=== PATIENT | female | born 1995 | race Two or more races ===

== ENCOUNTER 2017-06-26 02:36 | Emergency (ER) | payer OTHER ==
--- NOTE | 2017-06-26 03:51 | ER Document Report ---
ED General - General Chief Complaint: Vag Bleeding, +preg <12wks Stated Complaint: VAGINAL BLEEDING Time Seen by Provider: 06/26/17 03:42 Notes: Patient is a 21-year-old female who presents with complaint of some pelvic cramping and vaginal bleeding. Symptoms have been ongoing tonight. She did have some cramping yesterday and was seen at [place] emergency department. She said she had an ultrasound there which showed what she thinks was an IUP with a low heart rate. She was also told that she had a fibroid. Her bleeding started tonight and therefore she came to our ER for reevaluation. This is her first . She is unsure what her blood type is. She has been taking vitamins. She takes no other medications and has no chronic medical problems. She has no other complaints or concerns at this time. She has not yet seen the associate dean of students. TRAVEL OUTSIDE OF THE [place] IN LAST 30 DAYS: No - Related Data Allergies/Adverse Reactions: No Known Allergies Allergy (Verified 08/01/15 08:08) Past Medical History - Social History Smoking Status: Never Smoker Frequency of alcohol use: None Drug Abuse: None Family History: None Renal/ Medical History: Denies: Hx Peritoneal Dialysis - Immunizations Immunizations up to date: Yes Hx Diphtheria, Pertussis, Tetanus Vaccination: Yes Review of Systems - Review of Systems Notes: My Normal Review Basic REVIEW OF SYSTEMS: CONSTITUTIONAL : Denies fever, chills, or sweats. Denies recent illness. RESPIRATORY: Denies cough, cold, or chest congestion. Denies shortness of breath, difficulty breathing, or wheezing. GASTROINTESTINAL: Denies abdominal pain. Denies nausea, vomiting, or diarrhea. Denies constipation. Last BM: GENITOURINARY: Denies difficulty urinating, painful urination, burning, frequency, or blood in urine. FEMALE GENITOURINARY: Vaginal bleeding.. LMP: Currently MUSCULOSKELETAL: Denies neck or back pain or joint pain or swelling. SKIN: Denies rash or skin lesions. NEUROLOGICAL: Denies altered mental status or loss of consciousness. Denies headache. Denies weakness or paralysis or loss of use of either side. Denies problems with gait or speech. Denies sensory or motor loss. ALL OTHER SYSTEMS REVIEWED AND NEGATIVE. Physical Exam - Vital signs Vitals: Temp Pulse Resp BP Pulse Ox 98.4 F 63 18 126/66 H 99 09/06/17 02:49 06/26/17 02:49 06/26/17 02:49 06/26/17 02:49 06/26/17 02:49 - Notes Notes: General Appearance: Well nourished, alert, cooperative, no acute distress, no obvious discomfort. Well-appearing. Vitals: reviewed, See vital signs table. Lungs: No wheezing, No rales, No rhonci, No accessory muscle use, good air exchange bilaterally. Heart: Normal rate, Regular rythm, No murmur, no rub Abdomen: Normal BS, soft, No rigidity, No inducible abdominal tenderness palpation, No guarding, no rebound, no abdominal masses, no organomegaly Extremities: strength 5/5 in all extremities, good pulses in all extremities, no swelling or tenderness in the extremities, no edema. Skin: warm, dry, appropriate color, no rash Neuro: speech clear, oriented x 3, normal affect, responds appropriately to questions. Course - Re-evaluation Re-evalutation: 06/26/17 06:17 Patient's ultrasound shows no heart rate. I suspect that she most likely is having a miscarriage. I informed patient that I suspect she will probably a miscarriage however it is on 100% clear at this time. I informed that she should return to the ER in 2 days for repeat hCG level to see if it is trending upwards or downwards. I encouraged her return to ER if she has heavy bleeding causing dizziness or if she feels short of breath or unwell. Patient agrees with plan and will be discharged home. Dictation of this chart was performed using voice recognition software; therefore, there may be some unintended grammatical errors. - Vital Signs Vital signs: Temp Pulse Resp BP Pulse Ox 98.4 F 63 18 126/66 H 99 06/26/17 02:49 06/26/17 02:49 06/26/17 02:49 06/26/17 02:49 06/26/17 02:49 - Laboratory Laboratory results interpreted by me: 06/26/17 04:00 Beta HCG, Quant 3754.20 H Discharge - Discharge Clinical Impression: Vaginal bleeding in Condition: Good Disposition: HOME, SELF-CARE Additional Instructions: Your current ultrasound cannot see a heartbeat. This could be because your is early or could be because you are having a miscarriage. It is important that you return to the ER in 2 days so we can repeat your hormone level. This will help confirm whether or not your is continuing normally or if you are having a miscarriage. Please return to the ER immediately if you have worsening pain, heavy bleeding, dizziness, or feel unwell. Please avoid sexual activity until cleared by an OB doctor.
--- NOTE | 2017-06-26 05:43 | RADIOLOGY REPORT (SQ) ---
EXAM DESCRIPTION: U/S OB TRANSVAG W/DOPPLER COMPLETED DATE/TIME: 06/26/2017 5:20 am REASON FOR STUDY: pain, vag bleeding in COMPARISON: None. TECHNIQUE: Transvaginal static and realtime grayscale images acquired of the pelvis. Additional dhruv cted spectral and color Doppler images recorded. All images stored on PACs. [facility] [place].20 LIMITATIONS: None. FINDINGS: UTERUS: The uterus measures 9.0 x 7.2 x 5.3 cm. There is a hypoechoic mass at the left po sterior myometrium measuring 5.1 x 5.2 x 4.8 cm, appearance suggestive of a uterine fibroid. There is heterogeneous material distending the endometrial cavity to 2.0 cm. The cervix measures 2.2 cm in length. GESTATIONAL SAC: Yes. YOLK SAC: Yes. POLE: Yes, measuring 0.27 cm. No heart rate was identified at this time. RIGHT ADNEXA: The right ovary was not visualized. LEFT ADNEXA: The left ovary was not visualized. FREE FLUID: None. IMPRESSION: Intrauterine gestation with no heart rate identified this time. Short-term follow up ultrasound recommended to re-evaluate. Heterogeneous material distending the endometrial cavity, may represent blood products. Large uterine fibroid. Trimester of : First - 0 to 13 weeks. TECHNICAL DOCUMENTATION: JOB ID: [id number] [employer]- All Rights Reserved
[2017-06-26] MEDS ORDERED: ACETAMINOPHEN 325 MG TABLET PO ONE (05:59)
[2017-06-26 06:56] VITALS: BP 127/62
== END 2017-06-26 06:55 | disposition home or self-care (01) ==
LOC: ER 02:36
DX: O46.91 Antepartum hemorrhage, unspecified, first trimester (principal); R10.2 Pelvic and perineal pain; Z3A.01 Less than 8 weeks gestation of pregnancy
CPT/HCPCS: 36415; 76817; 84702; 86900; 86901; 93976; 99284

== ENCOUNTER 2017-06-28 10:05 | Emergency (ER) | payer OTHER ==
[2017-06-28] MEDS ORDERED: ACETAMINOPHEN 325 MG TABLET PO ONE (10:38)
--- NOTE | 2017-06-28 10:38 | ER Document Report ---
ED GI/ - General Chief Complaint: Vaginal Bleeding Stated Complaint: ABDOMINAL PAIN Time Seen by Provider: 06/28/17 10:25 Mode of Arrival: Ambulatory Information source: Patient TRAVEL OUTSIDE OF THE [place] IN LAST 30 DAYS: No - HPI Patient complains to provider of: Pelvic pain, , Vaginal bleeding Onset: Last week Timing/Duration: Gradual Quality of pain: Achy, Cramping Severity at maximum: Mild Severity in ED: Mild Pain Level: 2 Location: Suprapubic, Pelvis, Vaginal Vaginal bleeding (Compared to normal period): Similar Associated symptoms: None Exacerbated by: Denies Relieved by: Denies Similar symptoms previously: Yes Recently seen / treated by doctor: Yes Notes: 06/28/17 10:37 Patient is a 21-year-old female who is approximately 9 weeks by dates, presenting to the emergency room complaining of vaginal bleeding with pelvic cramping that has been going on for the past week, she was previously seen in this emergency room on 06/26/2017 and diagnosed with likely impending miscarriage , patient states when she returned home after being discharged she did pass a small amount of tissue consistent with likely miscarriage, this is her first , she denies any medical problems, she does not currently have FASHION DIRECTOR, return today for reevaluation of beta quantitative hCG - Related Data Allergies/Adverse Reactions: No Known Allergies Allergy (Verified 06/28/17 10:09) Home Medications: Current Home Medications Pnv with Ca,No.72/Iron/FA [Pnv Plus Multivit Tab] 1 tab PO DAILY [History] Past Medical History - General Information source: Patient - Social History Smoking Status: Former Smoker Chew tobacco use (# tins/day): No Frequency of alcohol use: None Drug Abuse: None Family History: None Renal/ Medical History: Denies: Hx Peritoneal Dialysis Surgical Hx: Negative - Immunizations Immunizations up to date: Yes Hx Diphtheria, Pertussis, Tetanus Vaccination: Yes Review of Systems - Review of Systems Constitutional: No symptoms reported EENT: No symptoms reported Cardiovascular: No symptoms reported Respiratory: No symptoms reported Gastrointestinal: See HPI Genitourinary: No symptoms reported Female Genitourinary: No symptoms reported Musculoskeletal: No symptoms reported Skin: No symptoms reported Hematologic/Lymphatic: No symptoms reported Neurological/Psychological: No symptoms reported -: Yes All other systems reviewed and negative Physical Exam - Vital signs Vitals: Temp Pulse Resp BP Pulse Ox 98.0 F 65 20 129/98 H 98 06/28/17 10:09 06/28/17 10:06/28/17 10:06/28/17 10:06/28/17 10:09 Interpretation: Normal - General General appearance: Appears well, Alert - HEENT Head: Normocephalic, Atraumatic Eyes: Normal Pupils: PERRL - Respiratory Respiratory status: No respiratory distress Chest status: Nontender Breath sounds: Normal Chest palpation: Normal - Cardiovascular Rhythm: Regular Heart sounds: Normal auscultation Murmur: No - Abdominal Inspection: Normal Distension: No distension Bowel sounds: Normal Tenderness: Tender - suprapubic Organomegaly: No organomegaly - Back Back: Normal, Nontender - Extremities General upper extremity: Normal inspection, Nontender, Normal color, Normal ROM , Normal temperature General lower extremity: Normal inspection, Nontender, Normal color, Normal ROM , Normal temperature, Normal weight bearing. No: Chris's sign - Neurological Neuro grossly intact: Yes Cognition: Normal Orientation: AAOx4 [place] Coma Scale Eye Opening: Spontaneous [place] Coma Scale Verbal: Oriented [place] Coma Scale Motor: Obeys Commands [place]iley Coma Scale Total: 15 Speech: Normal Motor strength normal: LUE, RUE, LLE, RLE Sensory: Normal - Psychological Associated symptoms: Normal affect, Normal mood - Skin Skin Temperature: Warm Skin Moisture: Dry Skin Color: Normal Course - Re-evaluation Re-evalutation: 06/28/17 11:49 Findings were discussed with patient at bedside, quantitative beta hCG went from 3700-650 today, indicative of complete miscarriage, patient continues to have mild cramping and bleeding, she was advised to follow-up with FASHION DIRECTOR in the next week, return if any worsening of symptoms, we did discuss below the of retained products of conception and signs and symptoms to watch out for, patient will be given a prescription for pain medication and advised to return if any worsening, patient acknowledges understanding and agreement with this plan - Vital Signs Vital signs: Temp Pulse Resp BP Pulse Ox 98.0 F 65 20 129/98 H 98 06/28/17 10:09 06/28/17 10:06/28/17 10:06/28/17 10:06/28/17 10:09 - Laboratory Laboratory results interpreted by me: 06/28/17 10:35 Beta HCG, Quant 639.04 H Discharge - Discharge Clinical Impression: Miscarriage Condition: Stable Disposition: HOME, SELF-CARE Instructions: Miscarriage ([facility]) Additional Instructions: Follow up with your primary care provider in one to 2 days. Return to the emergency room immediately if symptoms worsen or any additional concerns. Prescriptions: Hydrocodone/Acetaminophen [Hydrocodon-Acetaminophen 5-325] 1 each PO Q6 #20 tablet
[2017-06-28 12:01] VITALS: BP 95/77
== END 2017-06-28 12:01 | disposition home or self-care (01) ==
LOC: ER 10:05
DX: O03.9 Complete or unspecified spontaneous abortion without complication (principal); Z87.891 Personal history of nicotine dependence
CPT/HCPCS: 36415; 84702; 99284

== ENCOUNTER 2017-12-06 18:23 | Emergency (ER) | payer OTHER ==
[2017-12-06] MEDS ORDERED: ACETAMINOPHEN 325 MG TABLET PO ONE (19:41)
--- NOTE | 2017-12-06 19:42 | ER Document Report ---
ED Medical Screen (RME) - General Chief Complaint: Vaginal Bleeding Stated Complaint: VAGINA BLEEDING Time Seen by Provider: 12/06/17 19:41 Mode of Arrival: Ambulatory Information source: Patient Notes: Patient states that she is currently 12-13 weeks . Patient reports lower pelvic cramping that started yesterday that worsened today. Patient reports lower back pain. Patient does complain of vaginal spotting. I have greeted and performed a rapid initial assessment of this patient. A comprehensive ED assessment and evaluation of the patient, analysis of test results and completion of the medical decision making process will be conducted by additional ED providers. TRAVEL OUTSIDE OF THE [place] IN LAST 30 DAYS: No - Related Data Allergies/Adverse Reactions: No Known Allergies Allergy (Verified 12/06/17 18:24) Past Medical History Renal/ Medical History: Denies: Hx Peritoneal Dialysis - Immunizations Immunizations up to date: Yes Hx Diphtheria, Pertussis, Tetanus Vaccination: Yes Physical Exam - Vital signs Vitals: Temp Pulse BP Pulse Ox 98.1 F 66 126/65 H 98 12/06/17 18:39 12/06/17 18:39 12/06/17 18:39 12/06/17 18:39 - Abdominal Tenderness: Tender - Lower pelvic Course - Vital Signs Vital signs: Temp Pulse Resp BP Pulse Ox 98.1 F 66 126/65 H 98 12/06/17 18:39 12/06/17 18:39 12/06/17 18:39 12/06/17 18:39
[2017-12-06 20:16] LABS: ABSOLUTE LYMPHOCYTES (AUTO) 2.3 10^3/uL (0.5-4.7); ABSOLUTE MONOCYTES (AUTO) 0.6 10^3/uL (0.1-1.4); ABSOLUTE NEUT (AUTO) 9.8 10^3/uL (1.7-8.2); BASOPHILS % (AUTO) 0.1 % (0-2); EOSINOPHILS % (AUTO) 0.1 % (0-6); HEMATOCRIT 40.2 % (36.0-47.0); HEMOGLOBIN 13.4 g/dL (12.0-15.5); LYMPHOCYTES % (AUTO) 17.9 % (13-45); MEAN CORPUSCULAR HEMOGLOBIN 27.9 pg (27.0-33.4); MEAN CORPUSCULAR HGB CONC 33.5 g/dL (32.0-36.0); MEAN CORPUSCULAR VOLUME 83 fl (80-97); MONOCYTES % (AUTO) 4.8 % (3-13); PLATELET COUNT 237 10^3/uL (150-450); RED BLOOD COUNT 4.81 10^6/uL (3.72-5.28); RED CELL DISTRIBUTION WIDTH 14.5 % (11.5-14.0); SEGMENTED NEUTROPHILS % (AUTO) 77.1 % (42-78); TOTAL CELLS COUNTED % (AUTO) 100 %; WHITE BLOOD COUNT 12.8 10^3/uL (4.0-10.5)
--- NOTE | 2017-12-06 20:29 | RADIOLOGY REPORT (SQ) ---
EXAM DESCRIPTION: U/S OB TRANSVAGINAL W/O DOP COMPLETED DATE/TIME: 12/06/2017 8:17 pm REASON FOR STUDY: pelvic cramping, spotting COMPARISON: None. TECHNIQUE: Transabdominal static and realtime grayscale images acquired of the pelvis. Additional se lected spectral and color Doppler images recorded. All images stored on PACs. bHCG: Pending. LIMITATIONS: Body wall acoustics. FINDINGS: FETUS: Living intrauterine . EGA: 12 weeks 5 days JULITA: 06/12/2018 FHR: 145 beats per minute. SUBCHORIONIC BLEED: No. SIZE OF BLEED: Not applicable. UTERUS: Probable fibroid anterior uterine body left of midline measuring 5.1 x 4.8 x 4.5 cm CERVICAL LENGTH: 2.7 cm. Closed. RIGHT ADNEXA: Ovary not identified. No adnexal free fluid. No adnexal masses. LEFT ADNEXA: Ovary not identified. No adnexal free fluid. No adnexal masses. FREE FLUID: None. OTHER: No other significant finding. IMPRESSION: LIVING INTRAUTERINE . EGA 12 WEEKS 5 DAYS DURING FIBROID ABOVE. Trimester of : First - 0 to 13 weeks. TECHNICAL DOCUMENTATION: JOB ID: [id number] [employer]- All Rights Reserved
--- NOTE | 2017-12-06 21:01 | ER Document Report ---
ED General - General Chief Complaint: Vaginal Bleeding Stated Complaint: VAGINA BLEEDING Time Seen by Provider: 12/06/17 19:41 Mode of Arrival: Ambulatory Notes: Patient is a 21-year-old female at approximately 12 weeks by LMP who presents with concerns of vaginal spotting and lower abdominal cramping in the setting of her . Patient notes that she has had intermittent vaginal spotting when wiping but is not had any heavy bleeding. She also notes that she has had several days of intermittent lower abdominal cramping which is considered to be very mild. Nothing improves or worsens her symptoms. She has not seen her PILOT TEACHER regarding today's concerns. She has a previously verified intrauterine on an outpatient ultrasound. She denies any fever, vomiting, diarrhea, chest pain or shortness of breath. No abdominal trauma. TRAVEL OUTSIDE OF THE [place] IN LAST 30 DAYS: No - Related Data Allergies/Adverse Reactions: No Known Allergies Allergy (Verified 12/06/17 18:24) Past Medical History - General Information source: Patient - Social History Smoking Status: Never Smoker Frequency of alcohol use: None Drug Abuse: None Lives with: Spouse/Significant other Family History: Reviewed & Not Pertinent Renal/ Medical History: Denies: Hx Peritoneal Dialysis - Immunizations Immunizations up to date: Yes Hx Diphtheria, Pertussis, Tetanus Vaccination: Yes Review of Systems - Review of Systems Notes: Constitutional: Negative for fever. HENT: Negative for sore throat. Eyes: Negative for visual changes. Cardiovascular: Negative for chest pain. Respiratory: Negative for shortness of breath. Gastrointestinal: Positive for lower abdominal cramping Genitourinary: Positive for vaginal bleeding Musculoskeletal: Negative for back pain. Skin: Negative for rash. Neurological: Negative for headaches, weakness or numbness. 10 point ROS negative except as marked above and in HPI. Physical Exam - Vital signs Vitals: Temp Pulse BP Pulse Ox 98.1 F 66 126/65 H 98 12/06/17 18:39 12/06/17 18:39 12/06/17 18:39 12/06/17 18:39 Interpretation: Normal Notes: PHYSICAL EXAMINATION: GENERAL: Well-appearing, well-nourished and in no acute distress. HEAD: Atraumatic, normocephalic. EYES: Pupils equal round and reactive to light, extraocular movements intact, sclera anicteric, conjunctiva are normal. ENT: nares patent, oropharynx clear without exudates. Moist mucous membranes. NECK: Normal range of motion, supple without lymphadenopathy LUNGS: Breath sounds clear to auscultation bilaterally and equal. No wheezes rales or rhonchi. HEART: Regular rate and rhythm without murmurs ABDOMEN: Soft, nontender, normoactive bowel sounds. No guarding, no rebound. No masses appreciated. EXTREMITIES: Normal range of motion, no pitting or edema. No cyanosis. NEUROLOGICAL: No focal neurological deficits. Moves all extremities spontaneously and on command. PSYCH: Normal mood, normal affect. SKIN: Warm, Dry, normal turgor, no rashes or lesions noted. Course - Re-evaluation Re-evalutation: 12/06/17 20:58 Patient presents with a mild amount of vaginal bleeding in the setting of a first trimester . Ultrasound does demonstrate a viable intrauterine with active heart rate. No active bleeding at time of presentation. She is Rh positive. Patient's abdominal exam is otherwise benign without any focal tenderness. I do not suspect an acute appendicitis, pyelonephritis, cystitis, or bowel obstruction. At this time will discharge with return precautions and follow-up recommendations. Verbal discharge instructions given a the bedside and opportunity for questions given. Medication warnings reviewed. Patient is in agreement with this plan and has verbalized understanding of return precautions and the need for primary care follow-up in the next 24-72 hours. - Vital Signs Vital signs: Temp Pulse Resp BP Pulse Ox 98.1 F 71 12 123/70 99 12/06/17 21:21 12/06/17 21:21 12/06/17 21:21 12/06/17 21:21 12/06/17 21:21 - Laboratory Result Diagrams: 12/06/17 19:50 Laboratory results interpreted by me: 12/06/17 12/06/17 12/06/17 19:50 19:50 19:56 WBC 12.8 H RDW 14.5 H Absolute Neutrophils 9.8 H Beta HCG, Quant 44032.00 H Urine Ketones 80 H Urine Blood LARGE H Urine Urobilinogen 2.0 H Ur Leukocyte Esterase TRACE H - Diagnostic Test Radiology reviewed: Reports reviewed Discharge - Discharge Clinical Impression: Vaginal bleeding during , antepartum, related abdominal pain of lower quadrant, antepartum Condition: Good Disposition: HOME, SELF-CARE Additional Instructions: Your ultrasound today shows a living intrauterine . Many pregnancies with this complication can go on to become normal pregnancies. Please follow closely with your primary care PILOT TEACHER. Please return if you develop severe abdominal pain, bleeding that goes through more than 2 pads for more than 2 hours, pass out, or have any other symptoms that are concerning to you. Please follow-up closely with your OBGYN regarding todays visit.
[2017-12-06 21:05] LABS: APPEARANCE,URINE SLIGHTLY-CLOUDY; BILIRUBIN,URINE NEGATIVE (NEGATIVE); COLOR,URINE YELLOW; GLUCOSE, URINE NEGATIVE (NEGATIVE); KETONES,URINE 80 mg/dL (NEGATIVE); LEUKOCYTE ESTERASE,URINE TRACE (NEGATIVE); NITRITE,URINE NEGATIVE (NEGATIVE); PROTEIN,URINE NEGATIVE (NEGATIVE); URINE SPECIFIC GRAVITY 1.024
[2017-12-06 21:33] VITALS: BP 123/70
== END 2017-12-06 21:21 | disposition home or self-care (01) ==
LOC: ER 18:23
DX: O46.91 Antepartum hemorrhage, unspecified, first trimester (principal); R10.30 Lower abdominal pain, unspecified; Z3A.12 12 weeks gestation of pregnancy
CPT/HCPCS: 36415; 76817; 81001; 84702; 85025; 86900; 86901; 99284

== ENCOUNTER 2018-01-21 13:27 | Emergency (ER) | payer OTHER, MEDICAID ==
--- NOTE | 2018-01-21 13:57 | ER Document Report ---
ED Medical Screen (RME) - General Chief Complaint: OB Problem (<20wks) Stated Complaint: PROBLEM Time Seen by Provider: 01/21/18 13:52 Notes: 22-year-old female patient 18 weeks reports fluid leaking for the past 1 week. She reports some pelvic cramping. She also has some burning with urination. I have greeted and performed a rapid initial assessment of this patient. A comprehensive ED assessment and evaluation of the patient, analysis of test results and completion of the medical decision making process will be conducted by additional ED providers. TRAVEL OUTSIDE OF THE [place] IN LAST 30 DAYS: No - Related Data Allergies/Adverse Reactions: No Known Allergies Allergy (Verified 01/21/18 13:28) Past Medical History - Social History Chew tobacco use (# tins/day): No Frequency of alcohol use: None Drug Abuse: None Renal/ Medical History: Denies: Hx Peritoneal Dialysis - Immunizations Immunizations up to date: Yes Hx Diphtheria, Pertussis, Tetanus Vaccination: Yes Physical Exam - Vital signs Vitals: Temp Pulse Resp BP Pulse Ox 98.4 F 66 16 122/60 99 01/21/18 13:33 01/21/18 13:33 01/21/18 13:33 01/21/18 13:33 01/21/18 13:33 Course - Vital Signs Vital signs: Temp Pulse Resp BP Pulse Ox 98.4 F 66 16 122/60 99 01/21/18 13:33 01/21/18 13:33 01/21/18 13:33 01/21/18 13:33 01/21/18 13:33
[2018-01-21 15:13] LABS: APPEARANCE,URINE SLIGHTLY-CLOUDY; BILIRUBIN,URINE NEGATIVE (NEGATIVE); COLOR,URINE YELLOW; GLUCOSE, URINE NEGATIVE (NEGATIVE); KETONES,URINE NEGATIVE (NEGATIVE); LEUKOCYTE ESTERASE,URINE LARGE (NEGATIVE); NITRITE,URINE NEGATIVE (NEGATIVE); PROTEIN,URINE NEGATIVE (NEGATIVE)
--- NOTE | 2018-01-21 16:24 | RADIOLOGY REPORT (SQ) ---
EXAM DESCRIPTION: U/S OB LIMITED COMPLETED DATE/TIME: 01/21/2018 4:13 pm REASON FOR STUDY: 18wks, fluid leak x 1 week? COMPARISON: None. TECHNIQUE: Limited transabdominal and endovaginal grayscale ultrasound for evaluation of specific re quested obstetrical parameters. LIMITATIONS: None. FINDINGS: CERVICAL LENGTH: 3.7 cm Closed. ZHANE: Largest pocket 4.4 cm. FHR: 132 beats per minute. PRESENTATION: Cephalic. OTHER: No other significant findings. IMPRESSION: Subjective delayed areas adequate amniotic fluid around the fetus, largest pocket measur es 4.4 cm in greatest depth. Trimester of : Second trimester - 13 weeks 1 day to 27 weeks 6 days. TECHNICAL DOCUMENTATION: JOB ID: [id number] [employer]- All Rights Reserved Reading location - IP/workstation name: [email or web address]
[2018-01-21 16:35] VITALS: BP 133/71
--- NOTE | 2018-01-21 16:46 | ER Document Report ---
ED GI/ - General Chief Complaint: OB Problem (<20wks) Stated Complaint: PROBLEM Time Seen by Provider: 01/21/18 13:52 Mode of Arrival: Ambulatory Information source: Patient, [facility] Records Notes: This 22-year-old female patient who is just over 18 weeks comes emergency room reporting questionable amniotic fluid leaking for the past week with some lower abdominal cramping. She is also having some burning with urination. There is no bleeding. There is no fever. TRAVEL OUTSIDE OF THE [place] IN LAST 30 DAYS: No - Related Data Allergies/Adverse Reactions: No Known Allergies Allergy (Verified 01/21/18 13:28) Past Medical History - General Information source: Patient, [facility] Records - Social History Smoking Status: Never Smoker Cigarette use (# per day): No Chew tobacco use (# tins/day): No Smoking Education Provided: No Frequency of alcohol use: None Drug Abuse: None Occupation: [employer] Lives with: Spouse/Significant other Family History: Reviewed & Not Pertinent Patient has suicidal ideation: No Patient has homicidal ideation: No - Medical History Medical History: Negative Surgical Hx: Negative - Immunizations Immunizations up to date: Yes Hx Diphtheria, Pertussis, Tetanus Vaccination: Yes Review of Systems - Review of Systems Constitutional: No symptoms reported EENT: No symptoms reported Cardiovascular: No symptoms reported Respiratory: No symptoms reported Gastrointestinal: No symptoms reported Genitourinary: See HPI Female Genitourinary: See HPI Musculoskeletal: No symptoms reported Skin: No symptoms reported Hematologic/Lymphatic: No symptoms reported Neurological/Psychological: No symptoms reported Physical Exam - Vital signs Vitals: Temp Pulse Resp BP Pulse Ox 98.4 F 66 16 122/60 99 01/21/18 13:33 01/21/18 13:33 01/21/18 13:33 01/21/18 13:33 01/21/18 13:33 Interpretation: Normal - General General appearance: Appears well, Alert In distress: None - HEENT Head: Normocephalic, Atraumatic Eyes: Normal Pupils: PERRL Neck: Normal - Respiratory Respiratory status: No respiratory distress - Cardiovascular Rhythm: Regular - Abdominal Inspection: Obese Bowel sounds: Normal Tenderness: Tender - Minimal suprapubic tenderness - Back Back: Normal - Extremities General upper extremity: Normal inspection General lower extremity: Normal inspection - Neurological Neuro grossly intact: Yes - Psychological Associated symptoms: Normal affect, Normal mood - Skin Skin Temperature: Warm Skin Moisture: Dry Skin Color: Normal Course - Vital Signs Vital signs: Temp Pulse Resp BP Pulse Ox 98.4 F 65 18 133/71 H 100 01/21/18 13:33 01/21/18 16:34 01/21/18 16:34 01/21/18 16:34 01/21/18 16:34 - Laboratory Laboratory results interpreted by me: 01/21/18 13:57 Urine Urobilinogen 2.0 H Ur Leukocyte Esterase LARGE H Urine Ascorbic Acid 20 H - Diagnostic Test Radiology reviewed: Image reviewed, Reports reviewed - Ultrasound shows normal heart rate, normal amniotic fluid. Discharge - Discharge Clinical Impression: with 18 completed weeks gestation, Urinary tract infection affecting Condition: Stable Disposition: HOME, SELF-CARE Additional Instructions: Your ultrasound shows adequate amniotic fluid around the fetus so it is unlikely you have had fluid leaking. Urinalysis does suggest a urinary tract infection which is the most likely cause of your symptoms. Take the antibiotics as prescribed and drink plenty of fluids. Follow-up with your [facility] doctor in the next 1-2 days for recheck. RETURN TO THE EMERGENCY ROOM IF ANY NEW OR WORSENING SYMPTOMS. Prescriptions: Nitrofurantoin Macrocrystal [Macrodantin] 100 mg PO QID #20 capsule
== END 2018-01-21 16:47 | disposition home or self-care (01) ==
LOC: ER 13:27
DX: O23.42 Unspecified infection of urinary tract in pregnancy, second trimester (principal); O26.892 Other specified pregnancy related conditions, second trimester; R10.30 Lower abdominal pain, unspecified; R30.9 Painful micturition, unspecified; Z3A.18 18 weeks gestation of pregnancy
CPT/HCPCS: 76815; 81001; 87086; 99284

== ENCOUNTER 2020-01-03 16:15 | Emergency (ER) | payer MEDICAID, OTHER ==
--- NOTE | 2020-01-03 17:01 | ER Document Report ---
HPI - HPI Patient complains to provider of: pain with deep breath Time Seen by Provider: 01/03/20 16:53 Onset: Other - 2 months Pain Level: 5 Context: 24-year-old female with no prior history presents emergency department with complaints of chest pain when she takes deep breath and exhales for the past 8 weeks. Patient denies fever vomiting diarrhea. Denies cardiac disease. Patient reports she has been spitting up bloody sputum every now and then when she coughs.. Denies history of TB. Has not been out of the country recently. Associated Symptoms: None Exacerbated by: Deep breathing Relieved by: Denies Similar symptoms previously: No Recently seen / treated by doctor: No Past Medical History - General Information source: Patient Last Menstrual Period: Implanon - Social History Smoking Status: Former Smoker Cigarette use (# per day): No Frequency of alcohol use: None Drug Abuse: None Occupation: [employer] Lives with: Family Family History: Reviewed & Not Pertinent Patient has suicidal ideation: No Patient has homicidal ideation: No - Medical History Medical History: Negative Renal/ Medical History: Denies: Hx Peritoneal Dialysis Surgical Hx: Negative - Immunizations Immunizations up to date: Yes Hx Diphtheria, Pertussis, Tetanus Vaccination: Yes Vertical Provider Document - CONSTITUTIONAL Agree With Documented VS: Yes Exam Limitations: No Limitations General Appearance: WD/WN, No Apparent Distress - INFECTION CONTROL TRAVEL OUTSIDE OF THE [place] IN LAST 30 DAYS: No - HEENT HEENT: Atraumatic, Normal ENT Exam, Normocephalic. negative: Conjuctival Injection, Pharyngeal Erythema, Tympanic Membrane Red, Tympanic Membrane Bulging - NECK Neck: Normal Inspection, Supple. negative: Lymphadenopathy-Left, Lymphadenopathy-Right - RESPIRATORY Respiratory: Breath Sounds Normal, No Respiratory Distress, Other - Chest wall tender to palpate - CARDIOVASCULAR Cardiovascular: Regular Rate, Regular Rhythm - GI/ABDOMEN Gastrointestinal: Abdomen Soft, Abdomen Non-Tender - BACK Back: negative: CVA Tenderness-Right, CVA Tenderness-Left - MUSCULOSKELETAL/EXTREMETIES Musculoskeletal/Extremeties: MAEW, FROM, Non-Tender - NEURO Level of Consciousness: Awake, Alert, Appropriate Motor/Sensory: No Motor Deficit - DERM Integumentary: Warm, Dry, No Rash Course - Re-evaluation Re-evalutation: 01/03/20 17:39 24-year-old female presents with complaints of chest pain for the past 2 months. Reports pain when she takes a deep breath and exhales. Patient's chest wall is tender to palpate. Patient was instructed on negative x-ray. Instructed on costochondritis ibuprofen. She was instructed to follow-up with her primary care provider within 1 week. She was also instructed to return here for any concerns difficulty breathing. She verbalized understand all instructions. Chest X-Ray 01/03/20 16:56 IMPRESSION: NO ACUTE FINDINGS. - Vital Signs Vital signs: Temp Pulse Resp BP Pulse Ox 98.8 F 89 16 145/93 H 97 01/03/20 16:39 01/03/20 16:39 01/03/20 16:39 01/03/20 16:39 01/03/20 16:39 - Diagnostic Test Radiology reviewed: Image reviewed, Reports reviewed - EKG Interpretation by Me EKG shows normal: Sinus rhythm Rate: Normal Rhythm: NSR Additional EKG results interpreted by me: 01/03/20 17:[address] elevation no T wave inversion Discharge - Discharge Clinical Impression: Costochondritis Condition: Stable Disposition: HOME, SELF-CARE Instructions: Family Physicians / Practices, Ibuprofen (General) ([facility]) Additional Instructions: *You have been evaluated for chest pain, costochondritis *Take medication as prescribed *Follow up with a primary care provider within 1 week for recheck *Return to ED for worsening condition, changes, needs, difficulty breathing, concerns Monitor your blood pressure. Your blood pressure was elevated today. This may be because you were anxious, in pain or because you need medication. It is important to follow up with your primary care provider for full evaluation. Prescriptions: Ibuprofen [Motrin 800 mg Tablet] 800 mg PO TID #15 tablet Forms: Elevated Blood Pressure
--- NOTE | 2020-01-03 17:21 | RADIOLOGY REPORT (SQ) ---
EXAM DESCRIPTION: CHEST 2 VIEWS COMPLETED DATE/TIME: 01/03/2020 5:07 pm REASON FOR STUDY: pain with deep breath COMPARISON: None. TECHNIQUE: Frontal and lateral radiographic views of the chest acquired. NUMBER OF VIEWS: Two view. LIMITATIONS: None. FINDINGS: LUNGS AND PLEURA: No pneumothorax. No consolidation or pleural effusion. MEDIASTINUM AND HILAR STRUCTURES: No contour abnormalities. HEART AND VASCULAR STRUCTURES: Heart normal size. BONES: No acute findings. HARDWARE: None in the chest. OTHER: No other significant finding. IMPRESSION: NO ACUTE FINDINGS. TECHNICAL DOCUMENTATION: JOB ID: [id number] 2010 [employer]- All Rights Reserved Reading location - IP/workstation name: [email or web address]
[2020-01-03] MEDS ORDERED: IBUPROFEN 800 MG TABLET PO ONE (17:40)
[2020-01-03 18:01] VITALS: BP 133/73
--- NOTE | 2020-01-04 00:37 | EKG REPORT ---
SEVERITY:- NORMAL ECG - SINUS RHYTHM : Confirmed by: Jose Laguna 04-Jan-2020 00:36:59
== END 2020-01-03 17:52 | disposition home or self-care (01) ==
LOC: ER 16:15
DX: M94.0 Chondrocostal junction syndrome [Tietze] (principal); R06.00 Dyspnea, unspecified
CPT/HCPCS: 71046; 93005; 93010; 99284